=== PATIENT | male | born 2000 | race Caucasian/White ===

== ENCOUNTER 2020-11-26 15:20 | Emergency (ER) | payer SELFPAY ==
[2020-11-26 15:34] VITALS: BP 135/75; PULSE 72; RESP 20; TEMP 36.4; O2SAT 98
--- NOTE | 2020-11-26 15:38 | ED.NAVMDI ---
HPI - Nausea/Vomiting/Diarrhea General Chief complaint: Nausea/Vomiting/Diarrhea Stated complaint: vomiting, diarrhea, headaches Source: patient and RN notes reviewed Mode of arrival: ambulatory Limitations: no limitations History of Present Illness HPI Narrative: Patient states he has had vomiting diarrhea for the last week. He thinks he might have had a subjective fever sometimes some chills. He says he eats and he throws up. He denies any constipation. Denies any cough. Said he tested positive for COVID July of 2020. MD elicited complaint: nausea, vomiting and diarrhea Onset (ago): week(s) (1) Description of vomiting: food contents and bilious Description of diarrhea: watery Associated nausea: Yes Associated abdominal pain: No Location of pain: none Exacerbating factors: eating Relieving factors: none Related Data Allergies Allergy/AdvReac Type Severity Reaction Status Date / Time No Known Allergies Allergy Verified 11/26/20 15:33 Review of Systems Review of Systems: All systems reviewed & are unremarkable except as noted in HPI and below Constitutional: Constitutional: Reports chills and Reports fever(s) ( Subjective) Cardiovascular: Cardiovascular: Denies chest pain Respiratory: Respiratory: Denies cough and Denies dyspnea Gastrointestinal: Gastrointestinal: Denies constipation Genitourinary: Genitourinary: Denies dysuria Endocrine: Endocrine: Denies polydipsia and Denies polyuria PMFSH Past Medical History Medical History (Updated 11/26/20 @ 17:01 by Jose C Villarrael MD) No active medical problems Surgical History Surgical History (Updated 11/26/20 @ 15:44 by Jose C Villarreal MD) Opal teeth removed Social History Social History (Updated 11/26/20 @ 15:44 by Jose C Villarreal MD) Smoking packs per day: 1 Smoking cigarettes per day: 20.0 Smoking status: Current every day smoker Tobacco type: cigarettes Alcohol intake: current Substance use: current Substance use type: marijuana Exam Const: General: healthy appearing, no acute distress and alert Nutritional Appearance: well nourished and thin Orientation/consciousness: patient oriented x3 HENMT: Head: normal to inspection Ears: external ears normal Eyes: Cornea: corneas normal Pupils: Equal, round and reactive pupils present EOM: EOMs intact bilaterally Neck: Neck: normal visual inspection and no lymphadenopathy Resp: Effort & Inspection: normal respiratory effort Auscultation: clear to auscultation bilaterally Cardio: Rate: regular rate Rhythm: regular rhythm GI: GI Palp: Yes Soft to palpation and No Tenderness to palpation present (GI) Auscultation: normal bowel sounds Back/Spine/Pelvis: Cervical Spine: cervical ROM normal Thoracic/Lumbar Spine: thoraco-lumbar ROM normal Skin: General skin exam: normal color Rashes: no rashes Neuro: General: patient oriented x3, moves all extremities, no meningeal signs and no focal motor deficits Speech: normal speech Gait exam (Neuro): Normal gait present Extrem: General: normal to inspection and no clubbing, cyanosis or edema Psych: Appearance: grossly normal and well kempt Mental Status: mental status grossly normal Affect: normal affect Attitude: cooperative Thought content: Yes Normal thought content present Course Vital Signs Vital signs: Vital Signs Temperature 36.4 C L 11/26/20 15:34 Pulse Rate 72 11/26/20 15:34 Respiratory Rate 20 11/26/20 15:34 Blood Pressure 135/75 11/26/20 15:34 Pulse Oximetry 98 11/26/20 15:34 Temperature 36.3 C L 11/26/20 16:55 Pulse Rate 74 11/26/20 16:55 Respiratory Rate 18 11/26/20 16:55 Blood Pressure 128/74 11/26/20 16:55 Pulse Oximetry 98 11/26/20 16:55 MDM - Nausea/Vomiting/Diarrhea Lab Data Attestation: I reviewed the patient's lab results. Result diagrams: 11/26/20 15:52 11/26/20 15:51 Labs: Lab Results 11/26/20 11/26/20 11/26/20 Range/Unit
[2020-11-26] MEDS: SODIUM CHLORIDE 0.9% IV 1,000 ML 999 ML IV CONT (15:50)
[2020-11-26 16:00] LABS: Basophils Absolute Auto 0.03 K/mm3 (0.00-0.10); Basophils Percent Auto 0.4 % (0.0-1.0); Eosinophils Absolute Auto 0.05 K/mm3 (0.02-0.50); Eosinophils Percent Auto 0.6 % (1.0-6.0); Hematocrit 47.3 % (40.0-54.0); Immature Granulocyte Absolute 0.02 K/mm3 (0.00-0.00); Immature Granulocyte Percent A 0.2 % (0.0-0.0); Lymphocytes Absolute Auto 1.54 K/mm3 (1.10-4.50); Lymphocytes Percent Auto 18.6 % (18.0-42.0); Mean Corpuscular HGB Conc 35.9 g/dL (32.0-36.0); Mean Corpuscular Hemoglobin 31.7 pg (27.0-31.0); Mean Corpuscular Volume 88.2 fL (78.0-102.0); Mean Platelet Volume 9.4 fl (8.7-11.0); Monocytes Absolute Auto 0.51 K/mm3 (0.10-0.90); Monocytes Percent Auto 6.2 % (2.0-11.0); Neutrophils Absolute Auto 6.1 K/mm3 (1.7-7.2); Platelet Count Result 220 K/mm3 (150-420); Red Blood Count 5.36 M/mm3 (4.70-6.10); Red Cell Distribution Width 11.2 % (11.6-14.4); White Blood Count 8.3 K/mm3 (4.8-10.8)
[2020-11-26 16:20] LABS: CRP < 0.5 mg/dL (0.0-0.9)
[2020-11-26 16:22] LABS: Influenza Control Valid (Valid)
[2020-11-26 16:23] LABS: Alanine Aminotransferase 39 U/L (16-63); Albumin Level 4.5 g/dL (3.4-5.0); Alkaline Phosphatase 77 U/L (46-116); Anion Gap 10 mmol/L (8-16); Aspartate Amino Transferase 28 U/L (15-37); Bilirubin,Total 1.3 mg/dL (0.00-1.00); Blood Urea Nitrogen 14 mg/dL (7-18); Calcium 9.2 mg/dL (8.5-10.1); Carbon Dioxide 27 mmol/L (21-32); Chloride 103 mmol/L (98-108); Estimated CRCL calculation 101 ml/min; Estimated Glomerular Filt Rate > 60; Glucose 98 mg/dL (70-99); Osmolality Calculated 290 mOsm/kg (285-295); Sodium 140 mmol/L (136-145)
[2020-11-26 16:24] LABS: Lipase 187 U/L (73-393)
[2020-11-26 16:29] LABS: Add Urine Microscopic? YES; Appearance Urine Clear (Clear); Bilirubin Urine Negative (Negative); Blood Urine Negative (Negative); Color Urine Yellow (Yellow); Glucose Urine UA Negative (Negative); Ketones Urine Negative (Negative); Leukocyte Esterase Ur Negative LEU/UL (Negative); Nitrate Urine Negative (Negative); Protein Urine 1+ (Negative); pH Urine 7.5 (5.0-8.0)
[2020-11-26 16:32] LABS: Bacteria Urine Trace /hpf; RBC Urine None seen /hpf (0-2); Squamous Epithelial Cell Urine Rare /hpf (Few); WBC Urine None seen /hpf (0-3)
[2020-11-26 16:33] LABS: Mucus Urine Moderate /lpf
[2020-11-26] MEDS: KETOROLAC 30 MG/ML VIAL (*BKC) IV PUSH (16:37)
[2020-11-26 16:43] LABS: Amphetamine Screen Urine Negative (Negative)
[2020-11-26 16:44] LABS: Barbiturate Screen Urine Negative (Negative); Benzodiazepines Screen Urine Negative (Negative); Cannabinoid Screen Urine Positive (Negative); Cocaine Screen Urine Negative (Negative); Methadone Screen Urine Negative (Negative); Opiate Screen Urine Negative (Negative); Phencyclidine Screen Urine Negative (Negative)
[2020-11-26 16:50] LABS: SARS-CoV-2 RNA PCR Negative (Negative)
[2020-11-26 16:55] VITALS: BP 128/74; PULSE 74; RESP 18; TEMP 36.3; O2SAT 98
== END 2020-11-26 17:06 | disposition home or self-care (01) ==
PROVIDERS: Emergency Provider Emergency Medicine
DX: R11.15 Cyclical vomiting syndrome unrelated to migraine (principal); K52.9 Noninfective gastroenteritis and colitis, unspecified; Z20.822 Contact with and (suspected) exposure to COVID-19
CPT/HCPCS: 36415; 80053; 80307; 81001; 83690; 85025; 86140; 87804; 96361; 96374; 99283; 99284; C9803; J1885; J7030; U0003; U0005